=== PATIENT | male | born 1990 | race Asian ===

== ENCOUNTER → 2016-09-27 | Outpatient (CLI) | payer OTHER ==
[2016-09-30 14:48] LABS: QUANTIF TB AG-NIL <0.00 IU/ML; QUANTIFERON NIL 0.79 IU/ML
== END | disposition home or self-care (01) ==
LOC: C.LABSPEC 12:58
PROVIDERS: ATTEND Family Medicine
DX: Z11.3 Encounter for screening for infections with a predominantly sexual mode of transmission (principal); Z11.1 Encounter for screening for respiratory tuberculosis; Z23 Encounter for immunization